=== PATIENT | female | born 1955 | race Caucasian/White ===

== ENCOUNTER 2018-01-20 11:08 | Inpatient (IN) | payer OTHER ==
[~2018-01-20] VITALS: Ht 167.6 cm; Wt 71.0 kg
[2018-01-20 12:33] LABS: CALCIUM 8.4 mg/dL (8.5-10.1); CARBON DIOXIDE 24.9 mmol/L (21-32); CREATININE SERUM 1.1 mg/dL (0.6-1.0)
[2018-01-20 12:37] LABS: ALBUMIN 3.5 g/dL (3.4-5.0); BILIRUBIN TOTAL 0.8 mg/dL (0.20-1.00)
[2018-01-20 12:38] LABS: BASOPHIL % 0.8 % (0-2); PLATELET COUNT 211 x10^3mcL (130-400); TOTAL PROTEIN, SERUM 6.1 g/dL (6.4-8.2)
[2018-01-20 12:39] LABS: RED CELL DISTRIBUTION WIDTH 17.9 % (11.5-14.5)
[2018-01-20 12:48] LABS: FREE T4 1.31 ng/dL (0.76-1.46); FREE THYROXINE INDEX 3.5 ug/dL (1.4-4.5); T4(THYROXINE) 9.9 ug/dL (4.7-13.3)
[2018-01-20 12:54] LABS: T3 TOTAL 0.75 ng/mL
[2018-01-20] MEDS ORDERED: GABAPENTIN100 M2 PO (13:14)
[2018-01-20] MEDS ORDERED: METFORMIN HCL1000 MG PO (13:14)
[2018-01-20] MEDS ORDERED: GLIPIZIDE5 M2 PO (13:15)
[2018-01-20] MEDS ORDERED: JANUVIA100 M1 PO (13:15)
[2018-01-20] MEDS ORDERED: ATORVASTATIN CA20 M1 (13:15)
[2018-01-20] MEDS ORDERED: ASPIR 8181 MG PO (13:16)
[2018-01-20 14:18] VITALS: BP 94/75
[2018-01-20 14:37] LABS: CHOLESTEROL/HDL RATIO 2.4; MAGNESIUM 1.8 mg/dL (1.8-2.4); PHOSPHOROUS 3.9 mg/dL (2.5-4.9)
[2018-01-20 15:42] VITALS: BP 125/76
[2018-01-20 15:52] VITALS: Ht 167.6 cm; Wt 71.0 kg
[2018-01-20 17:08] LABS: microscopic required? NO
[2018-01-20 17:12] VITALS: BP 111/66
[2018-01-20 17:21] LABS: UA SPECIFIC GRAVITY <=1.005 (1.005-1.035); urine erythrocyte NEGATIVE (NEGATIVE)
[2018-01-20 17:28] VITALS: BP 123/76
[2018-01-20 17:30] LABS: AMPHETAMINE QUAL UR NONE DETECTED (NEG <=1000)
[2018-01-20 20:56] VITALS: BP 103/56
[2018-01-21 06:01] VITALS: BP 103/73
[2018-01-21 07:07] LABS: BASOPHIL % 1.3 % (0-2); PLATELET COUNT 201 x10^3mcL (130-400)
[2018-01-21 07:09] LABS: RED CELL DISTRIBUTION WIDTH 18.1 % (11.5-14.5)
[2018-01-21 07:10] LABS: CALCIUM 8.4 mg/dL (8.5-10.1); CARBON DIOXIDE 24.1 mmol/L (21-32); CHLORIDE SERUM 104 mmol/L (98-107); CREATININE SERUM 0.8 mg/dL (0.6-1.0); GFR1 > 60 mL/min; GLUCOSE SERUM 71 mg/dL (74-106); MAGNESIUM 1.9 mg/dL (1.8-2.4); PHOSPHOROUS 3.9 mg/dL (2.5-4.9); POTASSIUM SERUM 3.7 mmol/L (3.5-5.1); SODIUM SERUM 138 mmol/L (136-145)
[2018-01-21 08:28] VITALS: BP 126/66
[2018-01-21 12:55] VITALS: BP 120/73
[2018-01-21 17:00] VITALS: BP 119/60
[2018-01-21 22:03] VITALS: BP 99/50
[2018-01-22 05:22] LABS: BASOPHIL % 1.6 % (0-2); PLATELET COUNT 178 x10^3mcL (130-400)
[2018-01-22 05:27] LABS: RED CELL DISTRIBUTION WIDTH 17.4 % (11.5-14.5)
[2018-01-22 05:33] LABS: CARBON DIOXIDE 27.9 mmol/L (21-32); CHLORIDE SERUM 107 mmol/L (98-107); CREATININE SERUM 0.9 mg/dL (0.6-1.0); GFR1 > 60 mL/min; GLUCOSE SERUM 91 mg/dL (74-106); MAGNESIUM 1.7 mg/dL (1.8-2.4); PHOSPHOROUS 3.4 mg/dL (2.5-4.9); POTASSIUM SERUM 3.6 mmol/L (3.5-5.1); SODIUM SERUM 139 mmol/L (136-145)
[2018-01-22 06:18] VITALS: BP 114/67
[2018-01-22 09:01] VITALS: BP 97/56
[2018-01-22 09:17] VITALS: BP 97/56
[2018-01-22] MEDS ORDERED: TOP50 PO (11:58)
[2018-01-22] MEDS ORDERED: ALD25 PO (11:59)
[2018-01-22] MEDS ORDERED: ZES5 PO (11:59)
[2018-01-22] MEDS ORDERED: LASIX20 MG PO (12:00)
[2018-01-22] MEDS ORDERED: COUMADIN10 MG PO (15:00)
[2018-01-22 15:22] VITALS: BP 97/56
[2018-01-22 15:26] VITALS: BP 97/56
== END 2018-01-22 16:17 | disposition home or self-care (01) | DRG 194 ==
LOC: ED 11:08 → DU 13:02
PROVIDERS: Emergency Medicine; Family Medicine
DX: I11.0 Hypertensive heart disease with heart failure (principal); N17.0 Acute kidney failure with tubular necrosis; I50.43 Acute on chronic combined systolic (congestive) and diastolic (congestive) heart failure; E11.65 Type 2 diabetes mellitus with hyperglycemia; I42.0 Dilated cardiomyopathy; I48.91 Unspecified atrial fibrillation; E11.9 Type 2 diabetes mellitus without complications; E02 Subclinical iodine-deficiency hypothyroidism; M94.0 Chondrocostal junction syndrome [Tietze]; Z82.49 Family history of ischemic heart disease and other diseases of the circulatory system
CPT/HCPCS: 83880; 84439; 97110-GP; 97116-GP; 97530-GP; J1644; J1940; J3475; J3490; J7030; J7040; Q0092

== ENCOUNTER 2018-05-13 00:28 | Emergency (ER) | payer OTHER ==
[~2018-05-13] VITALS: Ht 165.1 cm; Wt 63.5 kg
[~2018-05-13 00:28] MED LIST: ALD25 PO; ASPIR 8181 MG PO; ATORVASTATIN CA20 M1; COUMADIN10 MG PO; GABAPENTIN100 M2 PO; GLIPIZIDE5 M2 PO; JANUVIA100 M1 PO; LASIX20 MG PO; METFORMIN HCL1000 MG PO; TOP50 PO; ZES5 PO
[2018-05-13 00:42] VITALS: Ht 165.1 cm; Wt 63.5 kg
[2018-05-13 02:12] LABS: BASOPHIL % 0.3 % (0-2); PLATELET COUNT 156 x10^3mcL (130-400)
[2018-05-13 02:15] LABS: CARBON DIOXIDE 28.9 mmol/L (21-32); POTASSIUM SERUM 4.5 mmol/L (3.5-5.1)
[2018-05-13 02:20] LABS: ALBUMIN 3.8 g/dL (3.4-5.0); BILIRUBIN TOTAL 0.68 mg/dL (0.20-1.00); TOTAL PROTEIN, SERUM 6.5 g/dL (6.4-8.2)
[2018-05-13 05:23] VITALS: BP 107/66
== END 2018-05-13 05:23 | disposition home or self-care (01) ==
LOC: ED 00:28
PROVIDERS: Emergency Medicine
DX: K80.20 Calculus of gallbladder without cholecystitis without obstruction (principal); I11.0 Hypertensive heart disease with heart failure; I50.9 Heart failure, unspecified; I48.91 Unspecified atrial fibrillation; E11.9 Type 2 diabetes mellitus without complications
CPT/HCPCS: J2270; J7030; Q0092